=== PATIENT | female | born 1930 | race Caucasian/White ===

== ENCOUNTER → 2016-08-16 | Outpatient (CLI) | payer MEDICARE, OTHER ==
[~2016-08-16] MED LIST: BISO5TAB5 PO; D5W 1,000 ML IV SCH; DRIS50002 PO; ELIQ2.5T PO; K-TA1TAB PO; LASI40TA PO; LUTE20CA PO; MIDAZOLAM INJ 2 MG/2 ML VIAL (J2250) As Ordered ONE; NEUR100C PO; NITR4TASL SL; PRAV40TA2 PO; PRIL20TA2 PO; SYST1SOL OU; VENL75CA47 PO; VERA240C PO
[2016-08-16 15:45] VITALS: BP 107/65
--- NOTE | 2016-08-16 16:24 | T-ECHO ---
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 PROCEDURE: Transesophageal echocardiogram. PROCEDURE PERFORMED BY: Kris Mackenzie MD MANAGEMENT RECRUITER: None. LIGHT CONSCIOUS SEDATION: Midazolam 2 mg IV. COMPLICATIONS: None. DESCRIPTION OF PROCEDURE: Rhythm appeared to be underlying atrial fibrillation. Esophageal intubation was accomplished using a Virgil multiplane two-dimensional transesophageal echocardiogram probe, which was passed without difficulty. The patient received midazolam 2 mg IV total for light conscious sedation and received Cetacaine spray to the back of the pharynx prior to esophageal intubation. The left ventricle appeared normal in size and systolic function. Right ventricle appeared dilated with normal RV systolic function. Aortic valve was 3-cuspid and displayed moderate focal thickening and focal calcific deposits. No fusion of the aortic cusps. No aortic stenosis. Very mild aortic regurgitation was present. Moderate mitral annular calcification. Small flail segment involving the distal portion of the anterior mitral leaflet. There were two mitral regurgitation jets. There was one jet directed that was mild severity directed centrally, and there was also a severe mitral regurgitation jet directed along the posterior wall of the left atrium and reaching the superior roof of the left atrium. Furthermore, there was mild systolic flow reversal involving the pulse wave Doppler in the left upper pulmonary vein. Pulmonary venous inflow connections to the left atrium were anatomically normal. The left atrium appeared enlarged. No mass or thrombi within the left atrium or left atrial appendage. Right atrium appeared dilated. Right ventricle was prominently dilated with normal RV systolic function. No pericardial effusion. Presence of atrial and ventricular pacemaker leads with the right ventricle lead coursing towards the right ventricle apex position and the right atrial lead hooking into the right atrial appendage. Atrial septum was intact anatomically and by color flow Doppler. Distal aortic arch and descending thoracic aorta showed moderate atheroma. At least moderate tricuspid regurgitation was present. CONCLUSIONS: 1. Non-rheumatic mitral valve disease with moderate mitral annular calcification. Some loose/broken chordae present with resultant flail of a small segment of the distal portion of the anterior mitral leaflet. Associated severe mitral regurgitation with a posteriorly directed wall jet reaching the superior roof of the left atrium. Associated mild systolic flow reversal in the left upper pulmonary vein consistent with severe mitral regurgitation. 2. Structurally normal appearing tricuspid leaflets. At least moderate tricuspid regurgitation. Right ventricle dilatation. Normal RV systolic function. Right atrial dilatation. 3. Normal left ventricle size and systolic function. No regional wall motion abnormalities. 4. Left atrial dilatation. 5. Moderate aortic valve sclerosis of a 3-cuspid aortic valve. No aortic stenosis. Very mild aortic regurgitation. 6. Moderate atheroma involving the distal aortic arch and descending thoracic aorta. RECOMMENDATIONS: Consider mitral valve repair or alternatively, if the patient is not a candidate for mitral valve repair, then consider placement of a MitraClip. Copy To: Augusta Ernandez PA-C
== END | disposition home or self-care (01) ==
LOC: M OPP 12:58
PROVIDERS: ATTEND Internal Medicine Cardiovascular Disease
DX: I34.0 Nonrheumatic mitral (valve) insufficiency (principal); I49.01 Ventricular fibrillation; I50.32 Chronic diastolic (congestive) heart failure; I49.5 Sick sinus syndrome; I35.8 Other nonrheumatic aortic valve disorders; J44.9 Chronic obstructive pulmonary disease, unspecified; I11.0 Hypertensive heart disease with heart failure; I27.2 Other secondary pulmonary hypertension; E78.00 Pure hypercholesterolemia, unspecified; K22.5 Diverticulum of esophagus, acquired; F41.9 Anxiety disorder, unspecified; M19.90 Unspecified osteoarthritis, unspecified site; D64.9 Anemia, unspecified; Z95.5 Presence of coronary angioplasty implant and graft; Z95.0 Presence of cardiac pacemaker; Z79.899 Other long term (current) drug therapy; Z88.8 Allergy status to other drugs, medicaments and biological substances; Z88.2 Allergy status to sulfonamides
CPT/HCPCS: 93312; 93320; 93325; J2250

== ENCOUNTER → 2016-09-15 | Outpatient (REF) | payer MEDICARE, OTHER ==
[~2016-09-15] MED LIST changes: -D5W 1,000 ML IV SCH; -MIDAZOLAM INJ 2 MG/2 ML VIAL (J2250) As Ordered ONE
[2016-09-15 10:31] LABS: BASO % 0.6 % (0.0-1.0); EOS # 0.1 K/mm3 (0.0-0.50); EOS % 2.4 % (0.0-3.0); LARGE UNSTAINED CELL # 0.1 K/mm3 (0.0-0.4); LARGE UNSTAINED CELL % 1.9 % (0.0-4.0); LYMPH # 0.8 K/mm3 (1.5-4.5); LYMPH % 24.2 % (24.0-44.0); MEAN CORPUSCULAR HEMOGLOBIN 32.1 pg (27.0-33.0); MEAN CORPUSCULAR HGB CONC 32.2 g/dl (32.0-36.5); MEAN CORPUSCULAR VOLUME 99.8 fl (80.0-96.0); MONO # 0.2 K/mm3 (0.0-0.8); MONO % 6.7 % (0.0-5.0); NEUTROPHILS % 64.3 % (36.0-66.0); PLATELET COUNT, AUTOMATED 167 k/mm3 (150-450); RED CELL DISTRIBUTION WIDTH 12.9 % (11.5-14.5); WHITE BLOOD COUNT 3.2 K/mm3 (4.0-10.0)
[2016-09-15 11:07] LABS: CALCIUM LEVEL 8.2 MG/DL (8.8-10.2); CREATININE FOR GFR 0.98 MG/DL (0.55-1.02); GLOMERULAR FILTRATION RATE 57.2 (>32); POTASSIUM SERUM 4.2 MEQ/L (3.5-5.1)
== END ==
LOC: M LABDRAW1 10:17
PROVIDERS: ATTEND Internal Medicine Cardiovascular Disease
DX: I48.91 Unspecified atrial fibrillation (principal); I34.9 Nonrheumatic mitral valve disorder, unspecified

== ENCOUNTER → 2016-10-31 | Outpatient (REF) | payer MEDICARE, OTHER | LOC: M LAB REF 16:51 | PROVIDERS: ATTEND Family Medicine | DX: I50.32 Chronic diastolic (congestive) heart failure (principal) ==

== ENCOUNTER → 2017-02-13 | Outpatient (REF) | payer MEDICARE, OTHER ==
[2017-02-13 13:22] LABS: ALBUMIN 3.3 GM/DL (3.2-5.2); CREATININE FOR GFR 0.96 MG/DL (0.55-1.02); GLOMERULAR FILTRATION RATE 58.5 (>32); MAGNESIUM LEVEL 2.1 MG/DL (1.8-2.4); PHOSPHORUS LEVEL 3.8 MG/DL (2.5-4.9); POTASSIUM SERUM 4.8 MEQ/L (3.5-5.1)
== END ==
LOC: M LABDRAW1 12:55
PROVIDERS: ATTEND Physician Assistant
DX: I50.32 Chronic diastolic (congestive) heart failure (principal); I48.2 Chronic atrial fibrillation

== ENCOUNTER → 2017-05-15 | Outpatient (REF) | payer MEDICARE, OTHER ==
[2017-05-15 11:34] LABS: MEAN CORPUSCULAR HEMOGLOBIN 30.6 pg (27.0-33.0); MEAN CORPUSCULAR HGB CONC 30.1 g/dl (32.0-36.5); MEAN CORPUSCULAR VOLUME 101.7 fl (80.0-96.0); PLATELET COUNT, AUTOMATED 221 10^3/uL (150-450); WHITE BLOOD COUNT 5.1 10^3/uL (4.0-10.0)
[2017-05-15 12:45] LABS: ALBUMIN 3.4 GM/DL (3.2-5.2); ANION GAP 3 MEQ/L (8-16); BLOOD UREA NITROGEN 18 MG/DL (7-18); CALCIUM LEVEL 9.2 MG/DL (8.8-10.2); CARBON DIOXIDE LEVEL 40 MEQ/L (21-32); CHLORIDE LEVEL 98 MEQ/L (98-107); CREATININE FOR GFR 0.93 MG/DL (0.55-1.02); GLOMERULAR FILTRATION RATE > 60.0 (>32); GLUCOSE, FASTING 104 MG/DL (83-110); MAGNESIUM LEVEL 2.4 MG/DL (1.8-2.4); PHOSPHORUS LEVEL 4.2 MG/DL (2.5-4.9); POTASSIUM SERUM 4.6 MEQ/L (3.5-5.1); SODIUM LEVEL 141 MEQ/L (136-145)
== END ==
LOC: M LABDRAW1 10:50
PROVIDERS: ATTEND Physician Assistant
DX: I50.32 Chronic diastolic (congestive) heart failure (principal); I48.2 Chronic atrial fibrillation

== ENCOUNTER 2017-06-10 21:04 | Inpatient (IN) | payer MEDICARE, OTHER ==
[2017-06-10] MEDS: PRAVASTATIN 20 MG TAB PO (21:00)
[2017-06-10] MEDS: VENLAFAXINE **XR** 37.5 MG CAPSULE PO (21:00)
[2017-06-10] MEDS: GI COCKTAIL 50ML BTL(HYOSCYAMINE/MAALOX/LIDOCAINE VISCOUS)(1:3:1) PO (21:45)
[2017-06-10 21:54] LABS: BASO % 0.5 % (0.0-1.0); EOS # 0.1 10^3/uL (0.0-0.50); EOS % 1.2 % (0.0-3.0); HEMATOCRIT 35.5 % (36.0-47.0); IMMATURE GRANULOCYTE % 0.2 % (0-0); LYMPH # 0.8 10^3/uL (1.5-4.5); LYMPH % 19.1 % (24.0-44.0); MEAN CORPUSCULAR HEMOGLOBIN 31.3 pg (27.0-33.0); MEAN CORPUSCULAR VOLUME 100.9 fl (80.0-96.0); MONO # 0.5 10^3/uL (0.0-0.8); MONO % 11.4 % (0.0-5.0); NEUTROPHILS # 2.7 10^3/uL (1.8-7.7); NEUTROPHILS % 67.6 % (36.0-66.0); PLATELET COUNT, AUTOMATED 182 10^3/uL (150-450); RED BLOOD COUNT 3.52 10^6/uL (4.00-5.40); RED CELL DISTRIBUTION WIDTH 13.2 % (11.5-14.5)
[2017-06-10 22:09] LABS: PROTHROMBIN TIME 15.4 SECONDS (12.4-14.5)
[2017-06-10 22:10] LABS: PARTIAL THROMBOPLASTIN TIME 44.1 SECONDS (26.8-37.9)
[2017-06-10 22:12] LABS: D-DIMER QUANT 2344.2 ng/ml (<500)
[2017-06-10 22:26] LABS: ALBUMIN 3.7 GM/DL (3.2-5.2); ALBUMIN/GLOBULIN RATIO 0.88 (1.00-1.93); ALT/SGPT 14 U/L (12-78); ANION GAP 3 MEQ/L (8-16); AST/SGOT 19 U/L (7-37); BILIRUBIN,DIRECT 0.1 MG/DL (0.0-0.2); BILIRUBIN,TOTAL 0.4 MG/DL (0.2-1.0); BLOOD UREA NITROGEN 22 MG/DL (7-18); C REACTIVE PROTEIN QUANTITATIV < 0.30 MG/DL (0.00-0.30); CALCIUM LEVEL 8.9 MG/DL (8.8-10.2); CARBON DIOXIDE LEVEL 40 MEQ/L (21-32); CHLORIDE LEVEL 97 MEQ/L (98-107); CPK CREATINE PHOSPHOKINASE 86 U/L (26-192); CREATININE FOR GFR 0.92 MG/DL (0.55-1.02); GLOMERULAR FILTRATION RATE > 60.0 (>32); GLUCOSE, FASTING 95 MG/DL (83-110); LIPASE 194 U/L (73-393); POTASSIUM SERUM 4.1 MEQ/L (3.5-5.1); SODIUM LEVEL 140 MEQ/L (136-145); TOTAL PROTEIN 7.9 GM/DL (6.4-8.2); TROPONIN I < 0.02 NG/ML (< 0.10)
[2017-06-10 22:32] LABS: ALKALINE PHOSPHATASE 89 U/L (45-117); FREE T4 0.92 NG/DL (0.76-1.46); MB/CK RELATIVE INDEX 1.16 (< OR =4); NT-PRO BNP 1756 PG/ML (<450)
[2017-06-10] MEDS ORDERED: ISOVUE-370 76% 100ML VIAL (Q9967) As Ordered (22:34)
[2017-06-10] MEDS: FUROSEMIDE 40 MG/4 ML VIAL (J1940) IV (23:41)
[2017-06-11] MEDS ORDERED: ONDANSETRON 4MG/2ML VIAL (J2405) IV (00:45)
[2017-06-11] MEDS ORDERED: ACETAMINOPHEN TAB 650MG DOSE (2X325MG) PO (00:45)
[2017-06-11 06:51] LABS: TROPONIN I < 0.02 NG/ML (< 0.10)
[2017-06-11 07:28] LABS: HEMATOCRIT 33.8 % (36.0-47.0); HEMOGLOBIN 10.5 g/dl (12.0-16.0); MEAN CORPUSCULAR HEMOGLOBIN 30.7 pg (27.0-33.0); MEAN CORPUSCULAR HGB CONC 31.1 g/dl (32.0-36.5); MEAN CORPUSCULAR VOLUME 98.8 fl (80.0-96.0); PLATELET COUNT, AUTOMATED 171 10^3/uL (150-450); RED BLOOD COUNT 3.42 10^6/uL (4.00-5.40); RED CELL DISTRIBUTION WIDTH 13.1 % (11.5-14.5); WHITE BLOOD COUNT 4.3 10^3/uL (4.0-10.0)
[2017-06-11 08:02] LABS: ANION GAP 3 MEQ/L (8-16); BLOOD UREA NITROGEN 20 MG/DL (7-18); CALCIUM LEVEL 8.9 MG/DL (8.8-10.2); CARBON DIOXIDE LEVEL 43 MEQ/L (21-32); CHLORIDE LEVEL 96 MEQ/L (98-107); CREATININE FOR GFR 0.86 MG/DL (0.55-1.02); GLOMERULAR FILTRATION RATE > 60.0 (>32); GLUCOSE, FASTING 81 MG/DL (83-110); POTASSIUM SERUM 3.8 MEQ/L (3.5-5.1); SODIUM LEVEL 142 MEQ/L (136-145)
[2017-06-11] MEDS: VERAPAMIL 120 MG SR TAB PO (09:15)
[2017-06-11] MEDS: GABAPENTIN 300 MG CAP PO ×4 (09:15→21:38)
[2017-06-11] MEDS: POLYVINYL ALCOHOL OPHTH SOLN 15 ML(LIQUITEARS) OU ×2 (09:15→21:39)
[2017-06-11] MEDS: BISOPROLOL FUMARATE 5 MG TAB PO ×2 (09:16→21:39)
[2017-06-11] MEDS: FUROSEMIDE 40 MG/4 ML VIAL (J1940) IV (09:16)
[2017-06-11] MEDS: APIXABAN 2.5 MG TAB (ELIQUIS) PO ×2 (09:16→21:38)
[2017-06-11] MEDS: PRAVASTATIN 20 MG TAB PO (21:38)
[2017-06-11] MEDS: VENLAFAXINE **XR** 37.5 MG CAPSULE PO (21:38)
[2017-06-12 06:56] LABS: HEMATOCRIT 31.9 % (36.0-47.0); HEMOGLOBIN 10.1 g/dl (12.0-16.0); MEAN CORPUSCULAR HEMOGLOBIN 31.2 pg (27.0-33.0); MEAN CORPUSCULAR HGB CONC 31.7 g/dl (32.0-36.5); MEAN CORPUSCULAR VOLUME 98.5 fl (80.0-96.0); PLATELET COUNT, AUTOMATED 174 10^3/uL (150-450); RED BLOOD COUNT 3.24 10^6/uL (4.00-5.40); WHITE BLOOD COUNT 3.9 10^3/uL (4.0-10.0)
[2017-06-12 07:11] LABS: ANION GAP 4 MEQ/L (8-16); BLOOD UREA NITROGEN 23 MG/DL (7-18); CALCIUM LEVEL 8.8 MG/DL (8.8-10.2); CARBON DIOXIDE LEVEL 41 MEQ/L (21-32); CHLORIDE LEVEL 96 MEQ/L (98-107); CREATININE FOR GFR 0.94 MG/DL (0.55-1.02); GLOMERULAR FILTRATION RATE 59.8 (>32); GLUCOSE, FASTING 88 MG/DL (83-110); MAGNESIUM LEVEL 2.2 MG/DL (1.8-2.4); POTASSIUM SERUM 3.8 MEQ/L (3.5-5.1); SODIUM LEVEL 141 MEQ/L (136-145)
[2017-06-12] MEDS: VERAPAMIL 120 MG SR TAB PO (09:00)
[2017-06-12] MEDS: APIXABAN 2.5 MG TAB (ELIQUIS) PO ×2 (09:22→21:11)
[2017-06-12] MEDS: GABAPENTIN 300 MG CAP PO ×4 (09:22→21:11)
[2017-06-12] MEDS: POLYVINYL ALCOHOL OPHTH SOLN 15 ML(LIQUITEARS) OU ×2 (09:22→21:12)
[2017-06-12] MEDS: FUROSEMIDE 40 MG/4 ML VIAL (J1940) IV (09:23)
[2017-06-12] MEDS: BISOPROLOL FUMARATE 5 MG TAB PO ×2 (09:52→21:11)
[2017-06-12] MEDS: VENLAFAXINE **XR** 37.5 MG CAPSULE PO (21:11)
[2017-06-12] MEDS: PRAVASTATIN 20 MG TAB PO (21:11)
[2017-06-13 08:12] LABS: HEMATOCRIT 34.9 % (36.0-47.0); HEMOGLOBIN 10.7 g/dl (12.0-16.0); MEAN CORPUSCULAR HEMOGLOBIN 30.9 pg (27.0-33.0); MEAN CORPUSCULAR HGB CONC 30.7 g/dl (32.0-36.5); MEAN CORPUSCULAR VOLUME 100.9 fl (80.0-96.0); PLATELET COUNT, AUTOMATED 184 10^3/uL (150-450); RED BLOOD COUNT 3.46 10^6/uL (4.00-5.40); RED CELL DISTRIBUTION WIDTH 13.2 % (11.5-14.5); WHITE BLOOD COUNT 4.1 10^3/uL (4.0-10.0)
[2017-06-13] MEDS: VERAPAMIL 120 MG SR TAB PO (08:27)
[2017-06-13] MEDS: FUROSEMIDE 40 MG/4 ML VIAL (J1940) IV (08:35)
[2017-06-13] MEDS: APIXABAN 2.5 MG TAB (ELIQUIS) PO (08:35)
[2017-06-13] MEDS: GABAPENTIN 300 MG CAP PO ×2 (08:35→12:58)
[2017-06-13] MEDS: POLYVINYL ALCOHOL OPHTH SOLN 15 ML(LIQUITEARS) OU (08:36)
[2017-06-13] MEDS: BISOPROLOL FUMARATE 5 MG TAB PO (08:36)
[2017-06-13 08:39] LABS: ANION GAP 2 MEQ/L (8-16); BLOOD UREA NITROGEN 23 MG/DL (7-18); CALCIUM LEVEL 9.1 MG/DL (8.8-10.2); CARBON DIOXIDE LEVEL 44 MEQ/L (21-32); CHLORIDE LEVEL 96 MEQ/L (98-107); CREATININE FOR GFR 0.92 MG/DL (0.55-1.02); GLOMERULAR FILTRATION RATE > 60.0 (>32); GLUCOSE, FASTING 94 MG/DL (83-110); MAGNESIUM LEVEL 2.2 MG/DL (1.8-2.4); POTASSIUM SERUM 3.7 MEQ/L (3.5-5.1); SODIUM LEVEL 142 MEQ/L (136-145)
[2017-06-17] MEDS ORDERED: VITAMIN D 50,000 UNITS CAPSULE (ERGOCALCIFEROL 1.25MG) PO (09:00)
== END 2017-06-13 14:57 | disposition home health service (06) | DRG 293 ==
LOC: M ED INP 06-11 00:35 → M MSPAV 06-11 15:36 → M ED 21:04
DX: I50.33 Acute on chronic diastolic (congestive) heart failure (principal); I25.10 Atherosclerotic heart disease of native coronary artery without angina pectoris; I48.2 Chronic atrial fibrillation; G50.0 Trigeminal neuralgia; E78.5 Hyperlipidemia, unspecified; K21.9 Gastro-esophageal reflux disease without esophagitis; J44.9 Chronic obstructive pulmonary disease, unspecified; Z95.5 Presence of coronary angioplasty implant and graft; Z85.3 Personal history of malignant neoplasm of breast; Z79.01 Long term (current) use of anticoagulants; Z79.899 Other long term (current) drug therapy

== ENCOUNTER 2017-06-29 14:47 | Inpatient (IN) | payer MEDICARE, OTHER ==
[2017-06-29 15:58] LABS: BASO % 0.2 % (0.0-1.0); EOS % 0.4 % (0.0-3.0); HEMATOCRIT 35.9 % (36.0-47.0); HEMOGLOBIN 11.4 g/dl (12.0-16.0); IMMATURE GRANULOCYTE % 0.2 % (0-0); LYMPH # 0.6 10^3/uL (1.5-4.5); LYMPH % 11.2 % (24.0-44.0); MEAN CORPUSCULAR HEMOGLOBIN 30.9 pg (27.0-33.0); MEAN CORPUSCULAR HGB CONC 31.8 g/dl (32.0-36.5); MEAN CORPUSCULAR VOLUME 97.3 fl (80.0-96.0); MONO # 0.5 10^3/uL (0.0-0.8); MONO % 9.5 % (0.0-5.0); NEUTROPHILS # 4.1 10^3/uL (1.8-7.7); NEUTROPHILS % 78.5 % (36.0-66.0); PLATELET COUNT, AUTOMATED 222 10^3/uL (150-450); RED BLOOD COUNT 3.69 10^6/uL (4.00-5.40); RED CELL DISTRIBUTION WIDTH 12.9 % (11.5-14.5); WHITE BLOOD COUNT 5.2 10^3/uL (4.0-10.0)
[2017-06-29] MEDS: FUROSEMIDE 40 MG/4 ML VIAL (J1940) IV ×2 (15:58→23:25)
[2017-06-29] MEDS: IPRATROPIUM 0.5MG/ALBUTEROL 2.5MG INH SOL UD 3ML (DUONEB)(J7620) NEB (15:58)
[2017-06-29 15:59] LABS: ABG BASE EXCESS 13.9 (-2.0-2.0); ABG HCO3 40.9 MEQ/L (22.0-26.0); ABG O2 SATURATION 98.4 % (95.0-99.0); ABG PARTIAL PRESSURE O2 108.8 mmHg (75.0-100.0); ABG STANDARD HCO3 37.7 MEQ/L (22.0-26.0); ABG TOTAL CO2 42.9 MEQ/L (23.0-31.0); ABG pH (ARTERIAL) 7.418 UNITS (7.350-7.450)
[2017-06-29 16:07] LABS: ABG PARTIAL PRESSURE CO2 64.8 mmHg (35.0-45.0)
[2017-06-29 16:18] LABS: LACTIC ACID SEPSIS PROTOCOL 1.6 MMOL/L (0.4-2.0)
[2017-06-29 16:23] LABS: ALBUMIN 3.5 GM/DL (3.2-5.2); ALBUMIN/GLOBULIN RATIO 0.76 (1.00-1.93); ALKALINE PHOSPHATASE 90 U/L (45-117); ALT/SGPT 12 U/L (12-78); ANION GAP 7 MEQ/L (8-16); AST/SGOT 18 U/L (7-37); BILIRUBIN,DIRECT 0.1 MG/DL (0.0-0.2); BILIRUBIN,TOTAL 0.5 MG/DL (0.2-1.0); BLOOD UREA NITROGEN 19 MG/DL (7-18); CALCIUM LEVEL 9.1 MG/DL (8.8-10.2); CARBON DIOXIDE LEVEL 38 MEQ/L (21-32); CHLORIDE LEVEL 94 MEQ/L (98-107); CPK CREATINE PHOSPHOKINASE 68 U/L (26-192); CREATININE FOR GFR 0.82 MG/DL (0.55-1.30); GLOMERULAR FILTRATION RATE > 60.0 (>32); GLUCOSE, FASTING 101 MG/DL (70-100); SODIUM LEVEL 139 MEQ/L (136-145); TOTAL PROTEIN 8.1 GM/DL (6.4-8.2); TROPONIN I < 0.02 NG/ML (< 0.10)
[2017-06-29 16:28] LABS: CK-MB VALUE MASS 1.6 NG/ML (0.0-3.6); MB/CK RELATIVE INDEX 2.35 (< OR =4); NT-PRO BNP 3149 PG/ML (<450)
[2017-06-29] MEDS ORDERED: NITROGLYCERIN 0.4 MG SUBL TABLET SL (18:00)
[2017-06-29] MEDS ORDERED: ONDANSETRON 4MG/2ML VIAL (J2405) IV (19:45)
[2017-06-29 19:58] LABS: INR 1.23; PROTHROMBIN TIME 15.7 SECONDS (12.4-14.5)
[2017-06-29 19:59] LABS: PARTIAL THROMBOPLASTIN TIME 41.7 SECONDS (26.8-37.9)
[2017-06-29 20:02] LABS: MAGNESIUM LEVEL 2.1 MG/DL (1.8-2.4)
[2017-06-29] MEDS: GABAPENTIN 100 MG CAP PO (21:00)
[2017-06-29] MEDS: DOCUSATE SODIUM 100 MG CAP PO (21:00)
[2017-06-29] MEDS: APIXABAN 2.5 MG TAB (ELIQUIS) PO (22:37)
[2017-06-29] MEDS: PRAVASTATIN 20 MG TAB PO (22:37)
[2017-06-29] MEDS: BISOPROLOL FUMARATE 5 MG TAB PO (22:40)
[2017-06-29] MEDS: NYSTATIN 100,000 UNITS/GM TOPICAL PWD 15 GM TOP (22:41)
[2017-06-29] MEDS ORDERED: SLF 3 ML SYR IV (22:45)
[2017-06-29] MEDS: VENLAFAXINE **XR** 37.5 MG CAPSULE PO (23:20)
[2017-06-29] MEDS: POLYVINYL ALCOHOL OPHTH SOLN 15 ML(LIQUITEARS) OU (23:20)
[2017-06-30 05:06] LABS: BASO % 0.7 % (0.0-1.0); EOS % 0.7 % (0.0-3.0); HEMATOCRIT 32.8 % (36.0-47.0); HEMOGLOBIN 10.6 g/dl (12.0-16.0); IMMATURE GRANULOCYTE % 0.2 % (0-0); LYMPH # 0.5 10^3/uL (1.5-4.5); LYMPH % 12.1 % (24.0-44.0); MEAN CORPUSCULAR HEMOGLOBIN 31.5 pg (27.0-33.0); MEAN CORPUSCULAR HGB CONC 32.3 g/dl (32.0-36.5); MEAN CORPUSCULAR VOLUME 97.3 fl (80.0-96.0); MONO # 0.6 10^3/uL (0.0-0.8); MONO % 13.3 % (0.0-5.0); NEUTROPHILS # 3.1 10^3/uL (1.8-7.7); PLATELET COUNT, AUTOMATED 195 10^3/uL (150-450); RED BLOOD COUNT 3.37 10^6/uL (4.00-5.40); WHITE BLOOD COUNT 4.2 10^3/uL (4.0-10.0)
[2017-06-30 05:33] LABS: ALBUMIN/GLOBULIN RATIO 0.75 (1.00-1.93); ALKALINE PHOSPHATASE 71 U/L (45-117); ALT/SGPT 11 U/L (12-78); ANION GAP 5 MEQ/L (8-16); AST/SGOT 14 U/L (7-37); BILIRUBIN,TOTAL 0.4 MG/DL (0.2-1.0); BLOOD UREA NITROGEN 19 MG/DL (7-18); CALCIUM LEVEL 8.5 MG/DL (8.8-10.2); CARBON DIOXIDE LEVEL 40 MEQ/L (21-32); CHLORIDE LEVEL 94 MEQ/L (98-107); CREATININE FOR GFR 0.89 MG/DL (0.55-1.30); GLOMERULAR FILTRATION RATE > 60.0 (>32); GLUCOSE, FASTING 99 MG/DL (70-100); POTASSIUM SERUM 3.5 MEQ/L (3.5-5.1); SODIUM LEVEL 139 MEQ/L (136-145)
[2017-06-30] MEDS: SLF 3 ML SYR IV ×3 (06:53→20:19)
[2017-06-30] MEDS: POTASSIUM CHLORIDE 10 MEQ SR TABLET PO (08:56)
[2017-06-30] MEDS: APIXABAN 2.5 MG TAB (ELIQUIS) PO ×2 (08:56→20:18)
[2017-06-30] MEDS: DOCUSATE SODIUM 100 MG CAP PO ×2 (08:56→20:18)
[2017-06-30] MEDS: GABAPENTIN 300 MG CAP PO ×3 (08:56→17:23)
[2017-06-30] MEDS: NYSTATIN 100,000 UNITS/GM TOPICAL PWD 15 GM TOP ×2 (08:57→20:19)
[2017-06-30] MEDS: VERAPAMIL 120 MG SR TAB PO (08:57)
[2017-06-30] MEDS: BISOPROLOL FUMARATE 5 MG TAB PO ×2 (08:57→20:17)
[2017-06-30] MEDS: POLYVINYL ALCOHOL OPHTH SOLN 15 ML(LIQUITEARS) OU ×2 (08:58→20:19)
[2017-06-30] MEDS: ACETAMINOPHEN TAB 650MG DOSE (2X325MG) PO (20:18)
[2017-06-30] MEDS: GABAPENTIN 100 MG CAP PO (20:18)
[2017-06-30] MEDS: VENLAFAXINE **XR** 37.5 MG CAPSULE PO (20:18)
[2017-06-30] MEDS: PRAVASTATIN 20 MG TAB PO (20:18)
[2017-07-01 04:35] LABS: BASO % 0.6 % (0.0-1.0); EOS # 0.1 10^3/uL (0.0-0.50); EOS % 1.6 % (0.0-3.0); HEMATOCRIT 34.8 % (36.0-47.0); HEMOGLOBIN 10.9 g/dl (12.0-16.0); IMMATURE GRANULOCYTE % 0.2 % (0-0); LYMPH # 0.8 10^3/uL (1.5-4.5); LYMPH % 17.1 % (24.0-44.0); MEAN CORPUSCULAR HEMOGLOBIN 30.4 pg (27.0-33.0); MEAN CORPUSCULAR HGB CONC 31.3 g/dl (32.0-36.5); MEAN CORPUSCULAR VOLUME 96.9 fl (80.0-96.0); MONO # 0.7 10^3/uL (0.0-0.8); MONO % 14.2 % (0.0-5.0); NEUTROPHILS # 3.2 10^3/uL (1.8-7.7); NEUTROPHILS % 66.3 % (36.0-66.0); PLATELET COUNT, AUTOMATED 215 10^3/uL (150-450); RED BLOOD COUNT 3.59 10^6/uL (4.00-5.40); RED CELL DISTRIBUTION WIDTH 12.8 % (11.5-14.5); WHITE BLOOD COUNT 4.9 10^3/uL (4.0-10.0)
[2017-07-01 04:54] LABS: ALBUMIN 2.9 GM/DL (3.2-5.2); ALBUMIN/GLOBULIN RATIO 0.73 (1.00-1.93); ALKALINE PHOSPHATASE 67 U/L (45-117); ALT/SGPT 10 U/L (12-78); ANION GAP 6 MEQ/L (8-16); AST/SGOT 11 U/L (7-37); BILIRUBIN,TOTAL 0.4 MG/DL (0.2-1.0); BLOOD UREA NITROGEN 23 MG/DL (7-18); CALCIUM LEVEL 8.6 MG/DL (8.8-10.2); CARBON DIOXIDE LEVEL 40 MEQ/L (21-32); CHLORIDE LEVEL 95 MEQ/L (98-107); CREATININE FOR GFR 0.88 MG/DL (0.55-1.30); GLOMERULAR FILTRATION RATE > 60.0 (>32); GLUCOSE, FASTING 98 MG/DL (70-100); MAGNESIUM LEVEL 2.2 MG/DL (1.8-2.4); POTASSIUM SERUM 3.5 MEQ/L (3.5-5.1); SODIUM LEVEL 141 MEQ/L (136-145); TOTAL PROTEIN 6.9 GM/DL (6.4-8.2)
[2017-07-01] MEDS: SLF 3 ML SYR IV ×3 (06:36→19:59)
[2017-07-01] MEDS: POTASSIUM CHLORIDE 10 MEQ SR TABLET PO (08:34)
[2017-07-01] MEDS: DOCUSATE SODIUM 100 MG CAP PO ×2 (08:36→19:59)
[2017-07-01] MEDS: ACETAMINOPHEN TAB 650MG DOSE (2X325MG) PO (08:36)
[2017-07-01] MEDS: GABAPENTIN 300 MG CAP PO ×3 (08:37→17:15)
[2017-07-01] MEDS: FUROSEMIDE 40 MG TAB PO ×2 (08:37→17:00)
[2017-07-01] MEDS: BISOPROLOL FUMARATE 5 MG TAB PO ×2 (08:37→19:57)
[2017-07-01] MEDS: NYSTATIN 100,000 UNITS/GM TOPICAL PWD 15 GM TOP ×2 (08:38→19:59)
[2017-07-01] MEDS: VERAPAMIL 120 MG SR TAB PO ×2 (08:38→13:46)
[2017-07-01] MEDS: POLYVINYL ALCOHOL OPHTH SOLN 15 ML(LIQUITEARS) OU ×2 (08:38→19:59)
[2017-07-01] MEDS: APIXABAN 2.5 MG TAB (ELIQUIS) PO ×2 (08:41→19:59)
[2017-07-01] MEDS: VITAMIN D 50,000 UNITS CAPSULE (ERGOCALCIFEROL 1.25MG) PO (08:41)
[2017-07-01] MEDS: DIGOXIN 0.25 MG TAB PO (11:30)
[2017-07-01] MEDS: GABAPENTIN 100 MG CAP PO (19:58)
[2017-07-01] MEDS: PRAVASTATIN 20 MG TAB PO (19:58)
[2017-07-01] MEDS: VENLAFAXINE **XR** 37.5 MG CAPSULE PO (19:59)
[2017-07-02] MEDS: ACETAMINOPHEN TAB 650MG DOSE (2X325MG) PO ×2 (01:28→21:24)
[2017-07-02] MEDS: SLF 3 ML SYR IV (05:49)
[2017-07-02 06:23] LABS: BASO % 0.4 % (0.0-1.0); EOS # 0.1 10^3/uL (0.0-0.50); EOS % 1.9 % (0.0-3.0); HEMATOCRIT 32.1 % (36.0-47.0); HEMOGLOBIN 10.1 g/dl (12.0-16.0); IMMATURE GRANULOCYTE % 0.2 % (0-0); LYMPH # 0.7 10^3/uL (1.5-4.5); LYMPH % 14.5 % (24.0-44.0); MEAN CORPUSCULAR HEMOGLOBIN 31.4 pg (27.0-33.0); MEAN CORPUSCULAR HGB CONC 31.5 g/dl (32.0-36.5); MEAN CORPUSCULAR VOLUME 99.7 fl (80.0-96.0); MONO # 0.5 10^3/uL (0.0-0.8); MONO % 11.4 % (0.0-5.0); NEUTROPHILS # 3.3 10^3/uL (1.8-7.7); NEUTROPHILS % 71.6 % (36.0-66.0); PLATELET COUNT, AUTOMATED 186 10^3/uL (150-450); RED BLOOD COUNT 3.22 10^6/uL (4.00-5.40); RED CELL DISTRIBUTION WIDTH 12.9 % (11.5-14.5); WHITE BLOOD COUNT 4.6 10^3/uL (4.0-10.0)
[2017-07-02 06:52] LABS: ALBUMIN 2.7 GM/DL (3.2-5.2); ALBUMIN/GLOBULIN RATIO 0.66 (1.00-1.93); ALKALINE PHOSPHATASE 68 U/L (45-117); ALT/SGPT 9 U/L (12-78); ANION GAP 4 MEQ/L (8-16); AST/SGOT 14 U/L (7-37); BILIRUBIN,TOTAL 0.4 MG/DL (0.2-1.0); BLOOD UREA NITROGEN 26 MG/DL (7-18); CALCIUM LEVEL 8.7 MG/DL (8.8-10.2); CARBON DIOXIDE LEVEL 42 MEQ/L (21-32); CHLORIDE LEVEL 96 MEQ/L (98-107); CREATININE FOR GFR 0.91 MG/DL (0.55-1.30); DIGOXIN LEVEL 0.1 NG/ML (0.5-2.0); GLOMERULAR FILTRATION RATE > 60.0 (>32); GLUCOSE, FASTING 96 MG/DL (70-100); POTASSIUM SERUM 3.7 MEQ/L (3.5-5.1); SODIUM LEVEL 142 MEQ/L (136-145); TOTAL PROTEIN 6.8 GM/DL (6.4-8.2)
[2017-07-02] MEDS ORDERED: DIGOXIN 0.125 MG TAB PO (09:00)
[2017-07-02] MEDS: VERAPAMIL 120 MG SR TAB PO (09:41)
[2017-07-02] MEDS: GABAPENTIN 300 MG CAP PO ×3 (09:41→17:51)
[2017-07-02] MEDS: APIXABAN 2.5 MG TAB (ELIQUIS) PO ×2 (09:41→21:21)
[2017-07-02] MEDS: DOCUSATE SODIUM 100 MG CAP PO ×2 (09:41→21:22)
[2017-07-02] MEDS: BISOPROLOL FUMARATE 5 MG TAB PO ×2 (09:42→21:22)
[2017-07-02] MEDS: FUROSEMIDE 40 MG TAB PO (09:42)
[2017-07-02] MEDS: POLYVINYL ALCOHOL OPHTH SOLN 15 ML(LIQUITEARS) OU ×2 (09:42→21:23)
[2017-07-02] MEDS: NYSTATIN 100,000 UNITS/GM TOPICAL PWD 15 GM TOP ×2 (09:42→21:23)
[2017-07-02] MEDS: GABAPENTIN 100 MG CAP PO (21:21)
[2017-07-02] MEDS: PRAVASTATIN 20 MG TAB PO (21:22)
[2017-07-02] MEDS: VENLAFAXINE **XR** 37.5 MG CAPSULE PO (21:22)
[2017-07-03 06:41] LABS: BASO % 0.4 % (0.0-1.0); EOS # 0.1 10^3/uL (0.0-0.50); EOS % 1.6 % (0.0-3.0); HEMATOCRIT 35.7 % (36.0-47.0); HEMOGLOBIN 10.9 g/dl (12.0-16.0); IMMATURE GRANULOCYTE % 0.2 % (0-0); LYMPH # 0.9 10^3/uL (1.5-4.5); LYMPH % 17.6 % (24.0-44.0); MEAN CORPUSCULAR HEMOGLOBIN 31.1 pg (27.0-33.0); MEAN CORPUSCULAR HGB CONC 30.5 g/dl (32.0-36.5); MONO # 0.4 10^3/uL (0.0-0.8); NEUTROPHILS # 3.5 10^3/uL (1.8-7.7); NEUTROPHILS % 71.2 % (36.0-66.0); PLATELET COUNT, AUTOMATED 215 10^3/uL (150-450); RED CELL DISTRIBUTION WIDTH 13.2 % (11.5-14.5); WHITE BLOOD COUNT 4.9 10^3/uL (4.0-10.0)
[2017-07-03 07:07] LABS: ALBUMIN 3.2 GM/DL (3.2-5.2); ALBUMIN/GLOBULIN RATIO 0.73 (1.00-1.93); ALKALINE PHOSPHATASE 76 U/L (45-117); ALT/SGPT 9 U/L (12-78); ANION GAP 2 MEQ/L (8-16); AST/SGOT 14 U/L (7-37); BILIRUBIN,TOTAL 0.3 MG/DL (0.2-1.0); BLOOD UREA NITROGEN 24 MG/DL (7-18); CALCIUM LEVEL 8.8 MG/DL (8.8-10.2); CARBON DIOXIDE LEVEL 43 MEQ/L (21-32); CHLORIDE LEVEL 96 MEQ/L (98-107); CREATININE FOR GFR 0.92 MG/DL (0.55-1.30); GLOMERULAR FILTRATION RATE > 60.0 (>32); GLUCOSE, FASTING 109 MG/DL (70-100); MAGNESIUM LEVEL 2.3 MG/DL (1.8-2.4); POTASSIUM SERUM 3.7 MEQ/L (3.5-5.1); SODIUM LEVEL 141 MEQ/L (136-145); TOTAL PROTEIN 7.6 GM/DL (6.4-8.2)
[2017-07-03] MEDS: DOCUSATE SODIUM 100 MG CAP PO ×2 (08:35→20:36)
[2017-07-03] MEDS: GABAPENTIN 300 MG CAP PO ×3 (08:36→16:31)
[2017-07-03] MEDS: APIXABAN 2.5 MG TAB (ELIQUIS) PO ×2 (08:36→20:36)
[2017-07-03] MEDS: FUROSEMIDE 40 MG TAB PO (08:36)
[2017-07-03] MEDS: POLYVINYL ALCOHOL OPHTH SOLN 15 ML(LIQUITEARS) OU ×2 (08:36→20:37)
[2017-07-03] MEDS: NYSTATIN 100,000 UNITS/GM TOPICAL PWD 15 GM TOP ×2 (08:37→20:39)
[2017-07-03] MEDS: VERAPAMIL 120 MG SR TAB PO ×2 (08:45→16:45)
[2017-07-03] MEDS: BISOPROLOL FUMARATE 5 MG TAB PO ×2 (08:47→20:39)
[2017-07-03] MEDS: VERAPAMIL 40 MG TAB PO (08:48)
[2017-07-03] MEDS ORDERED: VERAPAMIL 40 MG TAB PO (16:45)
[2017-07-03] MEDS: PRAVASTATIN 20 MG TAB PO (20:36)
[2017-07-03] MEDS: VENLAFAXINE **XR** 37.5 MG CAPSULE PO (20:37)
[2017-07-03] MEDS: GABAPENTIN 100 MG CAP PO (20:37)
[2017-07-03] MEDS: ACETAMINOPHEN TAB 650MG DOSE (2X325MG) PO (21:56)
[2017-07-04 06:13] LABS: BASO % 0.6 % (0.0-1.0); EOS # 0.1 10^3/uL (0.0-0.50); EOS % 2.2 % (0.0-3.0); HEMATOCRIT 32.9 % (36.0-47.0); IMMATURE GRANULOCYTE % 0.3 % (0-0); LYMPH # 0.7 10^3/uL (1.5-4.5); LYMPH % 19.7 % (24.0-44.0); MEAN CORPUSCULAR HEMOGLOBIN 30.9 pg (27.0-33.0); MEAN CORPUSCULAR HGB CONC 30.4 g/dl (32.0-36.5); MEAN CORPUSCULAR VOLUME 101.5 fl (80.0-96.0); MONO # 0.4 10^3/uL (0.0-0.8); MONO % 11.4 % (0.0-5.0); NEUTROPHILS # 2.4 10^3/uL (1.8-7.7); NEUTROPHILS % 65.8 % (36.0-66.0); PLATELET COUNT, AUTOMATED 205 10^3/uL (150-450); RED BLOOD COUNT 3.24 10^6/uL (4.00-5.40); RED CELL DISTRIBUTION WIDTH 13.2 % (11.5-14.5); WHITE BLOOD COUNT 3.6 10^3/uL (4.0-10.0)
[2017-07-04 06:36] LABS: ALBUMIN 2.9 GM/DL (3.2-5.2); ALBUMIN/GLOBULIN RATIO 0.66 (1.00-1.93); ALKALINE PHOSPHATASE 69 U/L (45-117); ALT/SGPT 10 U/L (12-78); ANION GAP 1 MEQ/L (8-16); AST/SGOT 11 U/L (7-37); BILIRUBIN,TOTAL 0.2 MG/DL (0.2-1.0); BLOOD UREA NITROGEN 23 MG/DL (7-18); CALCIUM LEVEL 8.7 MG/DL (8.8-10.2); CARBON DIOXIDE LEVEL 44 MEQ/L (21-32); CHLORIDE LEVEL 99 MEQ/L (98-107); CREATININE FOR GFR 0.89 MG/DL (0.55-1.30); GLOMERULAR FILTRATION RATE > 60.0 (>32); GLUCOSE, FASTING 96 MG/DL (70-100); MAGNESIUM LEVEL 2.2 MG/DL (1.8-2.4); POTASSIUM SERUM 3.9 MEQ/L (3.5-5.1); SODIUM LEVEL 144 MEQ/L (136-145); TOTAL PROTEIN 7.3 GM/DL (6.4-8.2)
[2017-07-04] MEDS: FUROSEMIDE 40 MG TAB PO (09:13)
[2017-07-04] MEDS: APIXABAN 2.5 MG TAB (ELIQUIS) PO (09:13)
[2017-07-04] MEDS: GABAPENTIN 300 MG CAP PO (09:13)
[2017-07-04] MEDS: DOCUSATE SODIUM 100 MG CAP PO (09:13)
[2017-07-04] MEDS: BISOPROLOL FUMARATE 5 MG TAB PO (09:14)
[2017-07-04] MEDS: VERAPAMIL 120 MG SR TAB PO (09:14)
[2017-07-04] MEDS: POLYVINYL ALCOHOL OPHTH SOLN 15 ML(LIQUITEARS) OU (09:15)
[2017-07-04] MEDS: NYSTATIN 100,000 UNITS/GM TOPICAL PWD 15 GM TOP (09:15)
== END 2017-07-04 11:21 | DRG 291 ==
LOC: M MSPAV 07-01 21:25 → M ED 14:47 → M ED INP 19:22 → M PCU 21:54
DX: I50.33 Acute on chronic diastolic (congestive) heart failure (principal); J96.02 Acute respiratory failure with hypercapnia; J96.21 Acute and chronic respiratory failure with hypoxia; B37.89 Other sites of candidiasis; J90 Pleural effusion, not elsewhere classified; Z66 Do not resuscitate; I34.0 Nonrheumatic mitral (valve) insufficiency; I25.10 Atherosclerotic heart disease of native coronary artery without angina pectoris; E78.5 Hyperlipidemia, unspecified; F32.9 Major depressive disorder, single episode, unspecified; I48.2 Chronic atrial fibrillation; Z79.01 Long term (current) use of anticoagulants; Z88.0 Allergy status to penicillin; Z88.2 Allergy status to sulfonamides; Z88.8 Allergy status to other drugs, medicaments and biological substances; Z79.899 Other long term (current) drug therapy; Z85.3 Personal history of malignant neoplasm of breast; Z95.5 Presence of coronary angioplasty implant and graft; I25.2 Old myocardial infarction; Z95.0 Presence of cardiac pacemaker; Z87.891 Personal history of nicotine dependence

== ENCOUNTER → 2017-07-10 | Outpatient (REF) ==
[2017-07-10 11:37] LABS: HEMATOCRIT 32.6 % (36.0-47.0); HEMOGLOBIN 10.2 g/dl (12.0-16.0); MEAN CORPUSCULAR HEMOGLOBIN 31.4 pg (27.0-33.0); MEAN CORPUSCULAR HGB CONC 31.3 g/dl (32.0-36.5); MEAN CORPUSCULAR VOLUME 100.3 fl (80.0-96.0); PLATELET COUNT, AUTOMATED 202 10^3/uL (150-450); RED BLOOD COUNT 3.25 10^6/uL (4.00-5.40); RED CELL DISTRIBUTION WIDTH 13.3 % (11.5-14.5); WHITE BLOOD COUNT 3.8 10^3/uL (4.0-10.0)
[2017-07-10 12:07] LABS: ANION GAP 9 MEQ/L (8-16); BLOOD UREA NITROGEN 17 MG/DL (7-18); CALCIUM LEVEL 8.4 MG/DL (8.8-10.2); CARBON DIOXIDE LEVEL 41 MEQ/L (21-32); CHLORIDE LEVEL 91 MEQ/L (98-107); CREATININE FOR GFR 0.94 MG/DL (0.55-1.30); GLOMERULAR FILTRATION RATE 59.8 (>32); GLUCOSE, FASTING 130 MG/DL (70-100); NT-PRO BNP 1796 PG/ML (<450); POTASSIUM SERUM 3.7 MEQ/L (3.5-5.1); SODIUM LEVEL 141 MEQ/L (136-145)
== END ==
DX: I50.9 Heart failure, unspecified (principal)

== ENCOUNTER → 2017-07-12 | Outpatient (REF) ==
[2017-07-12 18:49] LABS: HEMATOCRIT 33.7 % (36.0-47.0); HEMOGLOBIN 10.4 g/dl (12.0-16.0); MEAN CORPUSCULAR HEMOGLOBIN 31.4 pg (27.0-33.0); MEAN CORPUSCULAR HGB CONC 30.9 g/dl (32.0-36.5); MEAN CORPUSCULAR VOLUME 101.8 fl (80.0-96.0); PLATELET COUNT, AUTOMATED 207 10^3/uL (150-450); RED BLOOD COUNT 3.31 10^6/uL (4.00-5.40); RED CELL DISTRIBUTION WIDTH 13.3 % (11.5-14.5); WHITE BLOOD COUNT 4.2 10^3/uL (4.0-10.0)
[2017-07-12 18:52] LABS: ANION GAP 9 MEQ/L (8-16); BLOOD UREA NITROGEN 24 MG/DL (7-18); CALCIUM LEVEL 8.6 MG/DL (8.8-10.2); CARBON DIOXIDE LEVEL 44 MEQ/L (21-32); CHLORIDE LEVEL 87 MEQ/L (98-107); CREATININE FOR GFR 0.92 MG/DL (0.55-1.30); GLOMERULAR FILTRATION RATE > 60.0 (>32); GLUCOSE, FASTING 137 MG/DL (70-100); NT-PRO BNP 2881 PG/ML (<450); POTASSIUM SERUM 3.6 MEQ/L (3.5-5.1); SODIUM LEVEL 140 MEQ/L (136-145)
== END ==
DX: J44.9 Chronic obstructive pulmonary disease, unspecified (principal); I50.9 Heart failure, unspecified